=== PATIENT | female | born 1995 | race African-American/Black ===

== ENCOUNTER 2018-03-13 19:30 | Observation (INO) ==
[2018-03-13 21:08] LABS: Apearance,Urine CLOUDY (Clear); Bilirubin,Urine Negative (Negative); Blood, Urine Negative (Negative); Glucose,Urine (UA) Negative (Negative); Ketones,Urine 80 mg/dL (Negative); Mucus,Urine Many /LPF (Occasional); Nitrite,Urine Negative (Negative); Protein,Urine 100 MG/DL; RBC,Urine 14 /HPF (0-4); Squamous Epithelial Cell,Urine Many /HPF (0-10); Urine Color Amber (Yellow); Urine Specific Gravity 1.026 (1.001-1.035); Urine Urobilinogen < 2.0 EU/DL (0.2-1.0); WBC,Urine 7 /HPF (0-6)
[2018-03-13] MEDS ORDERED: SODIUM CHLORIDE 0.9% 1,000 ML IV STA (21:12)
[2018-03-13] MEDS ORDERED: ONDANSETRON 4 MG/2 ML VIAL IV STA (21:14)
[2018-03-13] MEDS ORDERED: ONDANSETRON 4 MG/2 ML VIAL ONE (21:15)
[2018-03-13 21:26] LABS: Basophils % 0.3 % (0.0-0.8); Eosinophils % 0.2 % (0.00-10.9); Hematocrit 39.7 VOL% (35.7-47.0); Hemoglobin 13.2 GM/DL (12.0-16.0); Immature Granulocytes % 0.5 %; Immature Granulocytes Absolute 0.06 #; Lymphocytes # 1.4 10*3/uL (1.4-4.0); Lymphocytes % 10.9 % (21.3-54.2); Mean Corpuscular HGB Conc 33.2 GM/DL (32-36); Mean Corpuscular Hemoglobin 28 PG (27-34); Mean Corpuscular Volume 83.8 FL (87-102); Mean Platelet Volume 10.6 FL (9.6-12.0); Monocytes # 0.8 10*3/uL (0.11-0.8); Monocytes % 6.1 % (1.7-12.7); Neutrophils # 10.1 10*3/uL (1.4-7.4); Platelet Count 254 T/CUMM (130-400); Red Blood Count 4.74 MC/CUMM (3.8-5.5); Red Cell Distribution Width 16.1 % (9.3-17.3); White Blood Count 12.4 T/CUMM (4-12)
[2018-03-13 21:57] LABS: Calcium 9.5 MG/DL (8.5-10.1); Osmolality,Calculated 274.7 MOS/KG (273-304); Potassium 3.4 MMOL/L (3.5-5.1)
[2018-03-13] MEDS ORDERED: cefTRIAXone 1,000 MG VIAL ONE (22:04)
[2018-03-13] MEDS ORDERED: cefTRIAXone 1,000 MG in SODIUM CHLORIDE 0.9% 100 ML IV STA (22:11)
[2018-03-13] MEDS ORDERED: ONDANSETRON 4 MG/2 ML VIAL IV PRN (22:45)
[2018-03-13] MEDS: SODIUM CHLORIDE 0.9% 1,000 ML IV SCH (23:26)
[2018-03-14] MEDS ORDERED: ACETAMINOPHEN 325 MG TABLET PO PRN (04:04)
[2018-03-14] MEDS: ACETAMINOPHEN 325 MG TABLET PO PRN ×4 (04:21→20:00)
[2018-03-14] MEDS: SODIUM CHLORIDE 0.9% 1,000 ML IV SCH ×3 (05:53→19:54)
[2018-03-14] MEDS ORDERED: BISACODYL 10 MG SUPP RECTAL ONE (18:14)
[2018-03-15] MEDS: SODIUM CHLORIDE 0.9% 1,000 ML IV SCH (02:15)
[2018-03-15] MEDS: ACETAMINOPHEN 325 MG TABLET PO PRN (06:23)
[2018-03-15 07:22] VITALS: BP 118/63
== END 2018-03-15 10:35 | disposition home or self-care (01) ==
LOC: N.ED 19:30 → N.EDINP 19:30 → N.OB 22:35
PROVIDERS: ADMIT Obstetrics & Gynecology; ATTEND Obstetrics & Gynecology

== ENCOUNTER 2018-09-29 15:37 | Inpatient (IN) ==
[2018-09-29] MEDS ORDERED: MEPERIDINE 25 MG/1 ML VIAL IV PRN (16:18)
[2018-09-29] MEDS ORDERED: ONDANSETRON 4 MG/2 ML VIAL IV PRN (16:18)
[2018-09-29] MEDS: LACTATED RINGERS 1,000 ML IV SCH (16:20)
[2018-09-29 16:36] LABS: Basophils % 0.2 % (0.0-0.8); Eosinophils % 0.3 % (0.00-10.9); Hematocrit 27.6 VOL% (35.7-47.0); Hemoglobin 8.2 GM/DL (12.0-16.0); Immature Granulocytes % 1.3 %; Immature Granulocytes Absolute 0.13 #; Lymphocytes # 1.2 10*3/uL (1.4-4.0); Lymphocytes % 11.7 % (21.3-54.2); Mean Corpuscular HGB Conc 29.7 GM/DL (32-36); Mean Corpuscular Volume 80.9 FL (87-102); Mean Platelet Volume 12.9 FL (9.6-12.0); Monocytes % 8.7 % (1.7-12.7); Neutrophils % 77.8 % (38.7-73.9); Platelet Count 228 T/CUMM (130-400); Red Blood Count 3.41 MC/CUMM (3.8-5.5); Red Cell Distribution Width 15.4 % (9.3-17.3)
[2018-09-29] MEDS ORDERED: OXYTOCIN/LR 20 UNIT/1,000 ML BAG IV SCH (18:00)
[2018-09-29] MEDS: BUTORPHANOL 2 MG/ML VIAL IV PRN ×2 (19:38→22:53)
[2018-09-30] MEDS: LACTATED RINGERS 1,000 ML IV SCH (00:13)
[2018-09-30] MEDS: BUTORPHANOL 2 MG/ML VIAL IV PRN (03:04)
[2018-09-30] MEDS ORDERED: miSOPROStol 200 MCG TABLET ONE (05:10)
[2018-09-30] MEDS ORDERED: CARBOPROST TROMETHAMINE 250 MCG/ML AMP IM ONE (05:10)
[2018-09-30] MEDS ORDERED: METHYLERGONOVINE 0.2 MG/1 ML AMP ONE (05:10)
[2018-09-30] MEDS ORDERED: LIDOCAINE 1% 50 ML VIAL ONE (05:12)
[2018-09-30] MEDS ORDERED: ceFAZolin 2,000 MG in PREMIX 1 EACH IV ONE (06:11)
[2018-09-30] MEDS ORDERED: FAT EMULSION 20% 0 ML IV ONE (10:06)
[2018-09-30] MEDS ORDERED: oxyCODONE/ACETAMINOPHEN 5-325 MG TABLET PO PRN ×2 (10:24)
[2018-09-30] MEDS ORDERED: LANOLIN 50% CREAM 0.3 OZ TUBE TOP PRN (10:24)
[2018-09-30] MEDS ORDERED: WITCH HAZEL PADS 100/JAR TOP PRN (10:24)
[2018-09-30] MEDS ORDERED: ACETAMINOPHEN 325 MG TABLET PO PRN (10:24)
[2018-09-30] MEDS ORDERED: RHO(D) IMMUNE GLOBULIN 300 MCG SYRINGE IM ONE (10:24)
[2018-09-30] MEDS ORDERED: OXYTOCIN/LR 20 UNIT/1,000 ML BAG IV ONE (10:24)
[2018-09-30] MEDS ORDERED: MEASLES/MUMPS/RUBELLA VACCINE 0.5 ML VIAL SUBCUT ONE (10:24)
[2018-09-30] MEDS ORDERED: IBUPROFEN 800 MG TABLET PO PRN (10:24)
[2018-09-30] MEDS ORDERED: BISACODYL 10 MG SUPP RECTAL PRN (10:24)
[2018-09-30] MEDS ORDERED: BENZOCAINE 20%/MENTHOL 0.5% SPRAY 56 GM CAN TOP PRN (10:24)
[2018-09-30] MEDS ORDERED: HYDROCORTISONE 2.5% RECTAL CREAM 30 GM TUBE TOP PRN (10:24)
[2018-09-30] MEDS ORDERED: DIPH/TET/ACEL PERT BOOSTER VACCINE 0.5 ML VIAL IM ONE (10:24)
[2018-09-30] MEDS: valACYclovir 500 MG TABLET PO SCH (10:45)
[2018-09-30] MEDS: MULTIVITAMIN (PRENATAL) TABLET PO SCH (10:45)
[2018-09-30] MEDS: FERROUS SULFATE 325 MG TABLET PO SCH ×2 (10:46→21:03)
[2018-09-30] MEDS: DOCUSATE SODIUM 100 MG CAPSULE PO SCH ×2 (10:46→21:03)
[2018-09-30] MEDS ORDERED: ERGOCALCIFEROL 50,000 UNIT CAPSULE PO SCH (11:00)
[2018-09-30] MEDS ORDERED: ceFAZolin 2,000 MG in PREMIX 1 EACH IV SCH (12:15)
[2018-09-30] MEDS: ceFAZolin 2,000 MG in PREMIX 1 EACH IV SCH ×2 (14:56→23:23)
[2018-10-01 04:47] LABS: Basophils % 0.1 % (0.0-0.8); Hematocrit 21.8 VOL% (35.7-47.0); Hemoglobin 6.7 GM/DL (12.0-16.0); Immature Granulocytes % 2.3 %; Immature Granulocytes Absolute 0.82 #; Lymphocytes # 1.3 10*3/uL (1.4-4.0); Lymphocytes % 3.7 % (21.3-54.2); Mean Corpuscular HGB Conc 30.7 GM/DL (32-36); Mean Platelet Volume 12.7 FL (9.6-12.0); Monocytes % 7.5 % (1.7-12.7); Neutrophils % 86.4 % (38.7-73.9); Platelet Count 192 T/CUMM (130-400); Red Blood Count 2.76 MC/CUMM (3.8-5.5); Red Cell Distribution Width 15.5 % (9.3-17.3); White Blood Count 34.9 T/CUMM (4-12)
[2018-10-01] MEDS: ceFAZolin 2,000 MG in PREMIX 1 EACH IV SCH ×3 (06:08→23:26)
[2018-10-01 06:20] LABS: Band Neutrophils 27 % (0-10); Lymphocytes 3 % (20-55); Segmented Neutrophils 64 % (50-85); Total Cells Counted 100
[2018-10-01 06:21] LABS: Anisocytosis 2+; Platelet Estimate Normal; Poikilocytosis 1+
[2018-10-01 06:22] LABS: Tear Drop Cells Few
[2018-10-01] MEDS: MULTIVITAMIN (PRENATAL) TABLET PO SCH (09:07)
[2018-10-01] MEDS: FERROUS SULFATE 325 MG TABLET PO SCH ×3 (09:07→20:19)
[2018-10-01] MEDS: valACYclovir 500 MG TABLET PO SCH (09:07)
[2018-10-01] MEDS: DOCUSATE SODIUM 100 MG CAPSULE PO SCH ×2 (09:08→20:19)
[2018-10-02] MEDS: ceFAZolin 2,000 MG in PREMIX 1 EACH IV SCH (07:58)
[2018-10-02] MEDS: MULTIVITAMIN (PRENATAL) TABLET PO SCH (08:01)
[2018-10-02] MEDS: valACYclovir 500 MG TABLET PO SCH (08:02)
[2018-10-02] MEDS: DOCUSATE SODIUM 100 MG CAPSULE PO SCH (08:02)
[2018-10-02] MEDS: FERROUS SULFATE 325 MG TABLET PO SCH ×2 (08:02→17:41)
[2018-10-02 08:56] VITALS: BP 115/62
== END 2018-10-02 15:00 | disposition home or self-care (01) | DRG 807 ==
LOC: N.LDOUT 15:37 → N.LD 15:39 → N.OB 09-30 10:15
PROVIDERS: ADMIT Obstetrics & Gynecology; ATTEND Obstetrics & Gynecology